=== PATIENT | male | born 1980 | race Caucasian/White ===

== ENCOUNTER 2018-04-22 14:52 | Emergency (ER) | payer MEDICARE, MEDICAID ==
[~2018-04-22] VITALS: Ht 172.7 cm; Wt 117.0 kg
[~2018-04-22 14:52] MED LIST: NEOM10SO7 OT
[2018-04-22 14:59] VITALS: BP 145/81
== END 2018-04-22 15:21 | disposition home or self-care (01) ==
LOC: ER 14:52
DX: F10.129 Alcohol abuse with intoxication, unspecified (principal); Z56.0 Unemployment, unspecified; Z79.899 Other long term (current) drug therapy; Y90.9 Presence of alcohol in blood, level not specified
CPT/HCPCS: 82948; 99282